=== PATIENT | male | born 1990 | race African-American/Black ===

== ENCOUNTER 2019-12-31 07:36 | Emergency (ER) | payer OTHER, SELFPAY ==
[2019-12-31 07:48] VITALS: BP 129/84; PULSE 74; RESP 17; TEMP 36.5; O2SAT 100
--- NOTE | 2019-12-31 07:53 | ED.GENADULT ---
HPI - General Adult General Chief complaint: Unspecified Stated complaint: STD check Time Seen by Provider: 12/31/19 07:42 Source: patient Mode of arrival: ambulatory Limitations: no limitations History of Present Illness HPI narrative: This patient is a 29 year old male who presents for STD check. He states he was told by his girlfriend yesterday that she had Chlamydia so he came to get checked today. He denies penile discharge, dysuria, abdominal pain, scrotal pain, or fever. Related Data Home Medications Medication Instructions Recorded Confirmed No Home Medications 12/31/19 12/31/19 Allergies Allergy/AdvReac Type Severity Reaction Status Date / Time No Known Allergies Allergy Verified 12/31/19 07:37 Review of Systems Review of Systems: All systems reviewed & are unremarkable except as noted in HPI and below Constitutional: Constitutional: Denies chills and Denies fever(s) Gastrointestinal: Gastrointestinal: Denies abdominal pain, Denies diarrhea, Denies nausea and Denies vomiting Genitourinary: Genitourinary: Denies hematuria, Denies oliguria, Denies genital lesions, Denies dysuria, Denies penile discharge, Denies testicular pain and Denies urinary frequency Musculoskeletal: Musculoskeletal: Denies back pain PMFSH Past Medical History Medical History (Updated 12/31/19 @ 08:50 by Katty Tai MD) No significant medical problems Surgical History Surgical History (Updated 12/31/19 @ 07:54 by Katty Tai MD) No history of previous surgery Social History Social History (Updated 12/31/19 @ 07:55 by Katty Tai MD) Smoking status: Current some day smoker Alcohol intake: current Alcohol use details: occasionally Substance use: current Substance use type: marijuana Gender identity (if verbalized by the patient): Male Exam Narrative: Exam Narrative: GENERAL: Well-appearing, well-nourished, and in no acute distress. HEAD: Normocephalic, atraumatic EYES: PERRLA and EOMI, conjunctiva clear without discharge fluctuance NECK: Supple, without lymphadenopathy or mass RESPIRATORY: No respiratory distress, Airway patent, Respirations non-labored, Clear to auscultation without rales, rhonchi or wheeze HEART: Regular rate and rhythm. No murmur heard. Normal peripheral pulses. ABDOMEN: Soft, nontender, nondistended, normal active bowel sounds. No masses. No rebound or guarding, No organomegaly. EXTREMITIES: No edema, normal strength with full range of motion. SKIN: Warm, dry, normal color without rash NEURO: Alert and oriented x3. CN 2-12 grossly intact. No focal deficits. PSYCH: Normal mood and affect. Course Reevaluation(s) Reevaluation #1: Patient has been treated as presumptive infection. I have discussed with patient. Date: 12/31/19 Time: 08:48 Vital Signs Vital signs: Vital Signs Temperature 97.7 F 12/31/19 07:48 Pulse Rate 74 12/31/19 07:48 Respiratory Rate 17 12/31/19 07:48 Blood Pressure 129/84 12/31/19 07:48 Pulse Oximetry 100 12/31/19 07:48 Temperature 97.7 F 12/31/19 07:48 Pulse Rate 94 12/31/19 09:04 Respiratory Rate 17 12/31/19 09:04 Blood Pressure 138/85 12/31/19 09:04 Pulse Oximetry 99 12/31/19 09:04 Medical Decision Making Vital Signs Vital Signs: Vital Signs Temperature 97.7 F 12/31/19 07:48 Pulse Rate 74 12/31/19 07:48 Respiratory Rate 17 12/31/19 07:48 Blood Pressure 129/84 12/31/19 07:48 Pulse Oximetry 100 12/31/19 07:48 Temperature 97.7 F 12/31/19 07:48 Pulse Rate 94 12/31/19 09:04 Respiratory Rate 17 12/31/19 09:04 Blood Pressure 138/85 12/31/19 09:04 Pulse Oximetry 99 12/31/19 09:04 Lab Data Labs: Lab Results 12/31/19 Range/Units 09:00 C.trachomatis RNA (TMA) Pending N.gonorrhoeae RNA (TMA) Pending Discharge Plan Discharge Clinical Impression: Exposure to STD Patient Disposition: Home, Self-Care Cond
[2019-12-31] MEDS: AZITHROMYCIN 250 MG TABLET 1000 MG PO (08:03)
[2019-12-31] MEDS: cefTRIAXone 250 MG VIAL IM (08:04)
[2019-12-31 09:04] VITALS: BP 138/85; PULSE 94; RESP 17; O2SAT 99
== END 2019-12-31 09:06 | disposition home or self-care (01) ==
PROVIDERS: Emergency Provider General Practice
DX: Z20.2 Contact with and (suspected) exposure to infections with a predominantly sexual mode of transmission (principal); F17.200 Nicotine dependence, unspecified, uncomplicated
CPT/HCPCS: 87491; 87591; 96372; 99283; A9270; J0696

== ENCOUNTER 2020-09-04 09:59 | Emergency (ER) | payer OTHER, SELFPAY ==
[2020-09-04 10:08] VITALS: BP 136/97; PULSE 71; RESP 21; TEMP 36.6; O2SAT 100
--- NOTE | 2020-09-04 10:50 | ED.GENADULT ---
HPI - General Adult General Chief complaint: Extremity Injury, Upper <Ney Jiang PA-C - Last Filed: 09/04/20 10:54> Stated complaint: R ARM PAIN <Ney Jiang PA-C - Last Filed: 09/04/20 10:54> Time Seen by Provider: 09/04/20 10:09 <Ney Jiang PA-C - Last Filed: 09/04/20 10:54> Source: patient <Ney Jiang PA-C - Last Filed: 09/04/20 10:54> Mode of arrival: ambulatory <Ney Jiang PA-C - Last Filed: 09/04/20 10:54> Limitations: no limitations <Ney Jiang PA-C - Last Filed: 09/04/20 10:54> History of Present Illness HPI narrative: Patient is a 29-year-old male who presents to emergency department for evaluation of right shoulder pain with some tingling into the pinky finger that began this morning 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 patient notes mild discomfort of the shoulder denies other injury or trauma patient does not take anything for his symptoms does not wish for any medication at this time patient requesting a work release noting that he was unable to go to work today <Ney Jiang PA-C - Last Filed: 09/04/20 10:54> Related Data Home medications: Home Medications Medication Instructions Recorded Confirmed No Home Medications 12/31/19 12/31/19 <Ney Jiang PA-C - Last Filed: 09/04/20 10:54> Allergies/adverse reactions: Allergies Allergy/AdvReac Type Severity Reaction Status Date / Time No Known Allergies Allergy Verified 09/04/20 10:42 <Ney Jiang PA-C - Last Filed: 09/04/20 10:54> Review of Systems Review of Systems: All systems reviewed & are unremarkable except as noted in HPI and below <Ney Jiang PA-C - Last Filed: 09/04/20 10:54> PMF Past Medical History Medical History: Medical History No significant medical problems <MICHEL Jones Last Filed: 09/04/20 10:54> Surgical History Surgical History: Surgical History No history of previous surgery <Ney Jiang PA-C - Last Filed: 09/04/20 10:54> Social History Social History: Social History Smoking status: Current some day smoker Alcohol intake: current Substance use: current Substance use type: marijuana Gender identity (if verbalized by the patient): Male <Ney Jiang PA-C - Last Filed: 09/04/20 10:54> Exam Narrative: Exam Narrative: GENERAL: Well-appearing, well-nourished, and in no acute distress. HEAD: Normocephalic, atraumatic. EYES: PERRLA and EOMI. ENT: Nares clear, no rhinorrhea or epistaxis. Mucous membranes moist. NECK: Supple. No adenopathy or masses. CHEST: Clear to auscultation. No respiratory distress. No wheezes rales or rhonchi HEART: Regular rate and rhythm. No murmur heard. Normal peripheral pulses. EXTREMITIES: Normal range of motion. No edema. Mild tenderness of the right shoulder no deformities no tenderness of the remainder of the extremity no cervical spine tenderness SKIN: Warm, dry, no rash. NEURO: No focal deficits. Alert and oriented x3. Cranial nerves II through XII grossly intact. Neurovascularly intact. Motor and sensory intact in the upper extremities. Normal speech and gait PSYCH: Normal mood and affect. <Ney Jiang PA-C - Last Filed: 09/04/20 10:54> Course Course Emergency Course: Patient in the room no distress will follow with primary care felt appropriate for outpatient reevaluation patient's symptoms seem to be musculoskeletal no other concerning history or findings <Ney Jiang PA-C - Last Filed: 09/04/20 10:54> Vital Signs Vital signs: Vital Signs Temperature 97.8 F 09/04/20 10:08 Pulse Rate 71 09/04/20 10:08 Respiratory Rate 21 H 09/04/20 10:08 Blood Pressure 136/97 H 09/04/20 10:08 Pulse
== END 2020-09-04 11:13 | disposition home or self-care (01) ==
PROVIDERS: Emergency Provider General Practice; PCP Family Medicine
DX: M25.511 Pain in right shoulder (principal); F17.200 Nicotine dependence, unspecified, uncomplicated
CPT/HCPCS: 99281

== ENCOUNTER 2021-03-30 11:15 | Emergency (ER) | payer OTHER, SELFPAY ==
--- NOTE | ~2021-03-30 | XR_ITS ---
EXAMINATION: XR finger 1st LT min 2V INDICATION: Left first finger pain TECHNIQUE: Three views of the left first finger are obtained. COMPARISON: None available FINDINGS: There is no fracture, dislocation, or subluxation. The bones, soft tissues, and joint space s are normal. IMPRESSION: 1. No acute osseous abnormality. Reviewed, dictated and finalized at location B.
--- NOTE | ~2021-03-30 | XR_ITS ---
EXAMINATION: XR finger 3rd RT min 2V INDICATION: Right third finger pain TECHNIQUE: Three views of the right third finger are obtained. COMPARISON: None available FINDINGS: There is a tiny heterotopic ossification at the palmar base of the third middle phalanx see n on the lateral view. The joint spaces are normal. Bone alignment is maintained. IMPRESSION: 1. Tiny heterotopic ossification at the palmar base of the third middle phalanx which could reflect a vulsion injury. Reviewed, dictated and finalized at location B. IMPRESSION: 1. Tiny heterotopic ossification at the palmar base of the third middle phalanx which could reflect avulsion injury.
[2021-03-30 11:26] VITALS: BP 146/59; PULSE 75; RESP 16; TEMP 36.6; O2SAT 100
[2021-03-30 13:04] VITALS: BP 134/94; PULSE 69; RESP 16; O2SAT 99
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
--- NOTE | 2021-05-17 13:09 | PC.NURSE ---
LATE ENTRY This note is being entered to document information to the patient's record. The following information was incorrectly entered on [04/03/2021], by [Billie Martinez RN]. Wound injury assessment should be for R hand middle finger and not R hand ring finger.
== END 2021-03-30 13:04 | disposition home or self-care (01) ==
PROVIDERS: Emergency Provider Emergency Medicine; PCP Family Medicine
DX: S61.052A Open bite of left thumb without damage to nail, initial encounter (principal); S63.612A Unspecified sprain of right middle finger, initial encounter; S61.252A Open bite of right middle finger without damage to nail, initial encounter; Y04.1XXA Assault by human bite, initial encounter; F17.200 Nicotine dependence, unspecified, uncomplicated
CPT/HCPCS: 29130; 73140; 99284

== ENCOUNTER 2021-04-15 08:12 | Emergency (ER) | payer OTHER, SELFPAY ==
--- NOTE | ~2021-04-15 | XR_ITS ---
EXAMINATION: XR femur LT min 2V EXAM DATE: 04/15/2021 08:42 INDICATION: No known recent injury provided at this time. Pain of the left femur. TECHNIQUE: Left femur frontal and lateral projections of the proximal aspect, frontal and lateral pro jections of the lower aspect for review. There is no prior study for comparison. FINDINGS: There are no acute left femoral fractures or dislocations identified. There is no subcutan eous gas. The soft tissue is unremarkable. Approximately 6 cm length foreign body seen best on the lateral projection probably external to patient. No femoral head avascular necrosis. Knee joint also unremarkable. IMPRESSION: 1. Unremarkable left femur exam. Reviewed, dictated and finalized at location A.
[2021-04-15 08:15] VITALS: BP 129/82; PULSE 91; RESP 16; TEMP 36.2; O2SAT 98
[2021-04-15 09:26] LABS: Basophils Absolute Auto 0.1 K/mm3 (0.0-0.1); Basophils Percent Auto 0.8 % (0.2-1.2); Eosinophils Absolute Auto 0.2 K/mm3 (0-0.3); Eosinophils Percent Auto 2.2 % (0-4.4); Hemoglobin 15.4 g/dL (14.0-18.0); Immature Granulocyte Absolute 0.03 K/mm3 (0.00-0.031); Immature Granulocyte Percent A 0.4 % (0-0.5); Lymphocytes Absolute Auto 2.29 K/mm3 (0.9-3.2); Mean Corpuscular Hemoglobin 32.6 pg (26-34); Mean Corpuscular Volume 93.2 fl (80-100); Mean Platelet Volume 10.5 fl (7.4-10.4); Monocytes Absolute Auto 0.9 K/mm3 (0.1-0.6); Monocytes Percent Auto 11.1 % (2.6-8.5); Neutrophils Percent Auto 58.5 % (45.5-73.1); Platelet Count Result 303 k/mm3 (150-375); Red Blood Count 4.72 M/mm3 (4.6-6.20); Red Cell Distribution Width 11.8 % (11.5-14.5); White Blood Count 8.5 K/mm3 (4.5-10.0)
[2021-04-15 09:32] LABS: Alanine Aminotransferase 27 U/L (4-50); Albumin Level 4.7 g/dL (3.5-5.1); Alkaline Phosphatase 54 U/L (38-126); Anion Gap 5 mmol/L (8-16); Aspartate Amino Transferase 31 U/L (17-59); Bilirubin,Total 0.4 mg/dL (0.2-1.3); Blood Urea Nitrogen 14 mg/dL (9-20); Calcium 9.6 mg/dL (8.4-10.2); Carbon Dioxide 28 mmol/L (22-30); Chloride 108 mmol/L (98-107); Creatine Kinase 199 U/L (55-170); Estimated CRCL calculation 93 ml/min; Estimated Glomerular Filt Rate > 60; Glucose 89 mg/dL (65-110); Potassium 4.5 mmol/L (3.4-5.0); Sodium 141 mmol/L (137-145)
[2021-04-15] MEDS: SODIUM CHLORIDE 0.9% IV 1,000 ML 999 ML IV CONT (09:43)
[2021-04-15] MEDS: KETOROLAC 15 MG/ML VIAL (*BKC) IV PUSH (10:24)
--- NOTE | 2021-04-15 11:08 | ED.EXTPRO ---
HPI - Extremity Problem General Chief complaint: Extremity Problem,Nontraumatic Stated complaint: left leg pain Time Seen by Provider: 04/15/21 08:26 History of Present Illness HPI Narrative: Patient presents with left lower extremity pain. Patient rates pain in his thigh that radiates down to his foot his symptoms were present for approximately 1 week and not resolved so he came to the ER for evaluation. Reports he was working on his car did kick his car but denies any other trauma denies any falls denies any focal numbness or weakness denies any edema. Denies any past medical history Related Data Home Medications Medication Instructions Recorded Confirmed No Home Medications 04/15/21 04/15/21 Allergies Allergy/AdvReac Type Severity Reaction Status Date / Time No Known Allergies Allergy Verified 04/15/21 08:18 Review of Systems Review of Systems: CONSTITUTIONAL: Denies fever, chills, or sweats. EYES: Denies visual changes, redness, or discharge. ENT: Denies rhinorrhea, congestion, sore throat, or otalgia. CARDIOVASCULAR: Denies chest pain, palpitations, or edema. RESPIRATORY: Denies cough or dyspnea. GASTROINTESTINAL: Denies abdominal pain, nausea, vomiting, or diarrhea. GENITOURINARY: Denies dysuria or hematuria. SKIN: Denies rash or itching. MUSCULOSKELETAL: Denies back pain, joint pain, or myalgia. NEUROLOGIC: Denies headache, numbness, dizziness, or weakness. PSYCHIATRIC: Denies anxiety or depression. All systems reviewed & are unremarkable except as noted in HPI and below PMFSH Past Medical History Medical History No significant medical problems Surgical History Surgical History No history of previous surgery Social History Social History Smoking status: Current some day smoker Alcohol intake: current Alcohol use details: occasionally Substance use: current Substance use type: marijuana Gender identity (if verbalized by the patient): Male Exam Narrative: GENERAL: Well-appearing, well-nourished, and in no acute distress. HEAD: Normocephalic, atraumatic. EYES: PERRLA and EOMI. ENT: Nares clear, no rhinorrhea or epistaxis. Mucous membranes moist. NECK: Supple. No masses. No JVD EXTREMITIES: Normal range of motion. No edema. Mild tenderness palpation on the lateral aspect of the left thigh SKIN: Warm, dry, no rash. NEURO: No focal deficits. Alert and oriented x3. PSYCH: Normal mood and affect. Course Reevaluation(s) Reevaluation #1: Patient resting comfortably reports improvement in symptoms results reviewed with patient. Patient comfortable with outpatient plan. Date: 04/15/21 Time: 11:10 Vital Signs Vital signs: Vital Signs Temperature 36.2 C L 04/15/21 08:15 Pulse Rate 91 04/15/21 08:15 Respiratory Rate 16 04/15/21 08:15 Blood Pressure 129/82 04/15/21 08:15 Pulse Oximetry 98 04/15/21 08:15 Temperature 36.2 C L 04/15/21 08:15 Pulse Rate 91 04/15/21 08:15 Respiratory Rate 16 04/15/21 08:15 Blood Pressure 129/82 04/15/21 08:15 Pulse Oximetry 98 04/15/21 08:15 MDM - Extremity (Nontraumatic) MDM Narrative Medical decision making narrative: H&P as above, vss, pt looks clinically well, exam reassuring, labs mild elevation in CK otherwise unremarkable, img unremarkable, additional labs/img considered, symptomatic relief available as needed, on reevaluation pt continues to looks clinically well. Suspect soft tissue injury, dns compartment syndrome, DVT, fracture, major neurovascular compromise. plan to tx/monitor as op w/ pcm f/u findings/plan discussed with pt, pt agree/comfortable with plan, return precautions given Lab Data Result diagrams: 04/15/21 09:16 04/15/21 09:16 Labs: Lab Results 04/15/21 04/15/21 Range/Units 09:16 09:16 WBC 8.5
== END 2021-04-15 11:17 | disposition home or self-care (01) ==
PROVIDERS: Emergency Provider Emergency Medicine; PCP Family Medicine
DX: M79.605 Pain in left leg (principal); F17.200 Nicotine dependence, unspecified, uncomplicated
CPT/HCPCS: 36415; 73552; 80053; 82550; 85025; 96361; 96374; 96375; 99284; J0131; J1885; J7030

== ENCOUNTER 2022-04-06 10:29 | Emergency (ER) | payer OTHER, SELFPAY ==
[2022-04-06 10:43] VITALS: BP 129/78; PULSE 67; RESP 16; TEMP 36.6; O2SAT 100
[2022-04-06 10:52] VITALS: BP 129/78; PULSE 67; RESP 16; TEMP 36.6; O2SAT 100
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
== END 2022-04-06 11:20 | disposition home or self-care (01) ==
PROVIDERS: Emergency Provider Nurse Practitioner; Referring Provider Family Medicine
DX: M79.601 Pain in right arm (principal); Y35.813A Legal intervention involving manhandling, suspect injured, initial encounter
CPT/HCPCS: 99213; A4565; G0463

== ENCOUNTER 2022-05-01 16:35 | Emergency (ER) | payer OTHER, SELFPAY ==
[2022-05-01 17:19] VITALS: BP 123/83; PULSE 53; RESP 18; TEMP 35.8; O2SAT 100
== END 2022-05-01 17:56 | disposition left against medical advice (07) ==
PROVIDERS: Emergency Provider Internal Medicine Hematology & Oncology
DX: Z53.21 Procedure and treatment not carried out due to patient leaving prior to being seen by health care provider (principal)
CPT/HCPCS: 99199

== ENCOUNTER 2022-05-02 10:44 | Emergency (ER) | payer OTHER, SELFPAY ==
[2022-05-02 11:27] VITALS: BP 121/85; PULSE 72; RESP 16; TEMP 36; O2SAT 100
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
== END 2022-05-02 12:00 | disposition home or self-care (01) ==
PROVIDERS: Emergency Provider Nurse Practitioner Family
DX: Z04.1 Encounter for examination and observation following transport accident (principal); F17.200 Nicotine dependence, unspecified, uncomplicated; F12.90 Cannabis use, unspecified, uncomplicated
CPT/HCPCS: 99212; G0463

== ENCOUNTER 2022-07-08 03:12 | Emergency (ER) | payer OTHER, SELFPAY ==
--- NOTE | ~2022-07-08 | CT_ITS ---
EXAMINATION: CT brain wo con INDICATION: Head injury COMPARISON: None TECHNIQUE: Standard unenhanced head CT. The dose-length product (DLP) was 605.33 mGy-cm. The mA was a djusted according to patient size. Iterative reconstruction technique was employed. FINDINGS: There is no intracranial hemorrhage, acute infarction, or abnormal mass lesion. The ventric les are normal. There is no abnormal mass effect or midline shift. The fortune-white matter differentiat ion is normal. The basal cisterns are patent. There is a left frontal scalp hematoma. The orbits are normal. There is mild mucosal thickening of the paranasal sinuses. IMPRESSION: 1. No acute intracranial abnormality. Reviewed, dictated and finalized at location A. T DESK ADMINISTRATOR
[2022-07-08 03:14] VITALS: BP 144/90; PULSE 78; RESP 15; TEMP 37
[2022-07-08 04:34] LABS: Basophils Absolute Auto 0.1 K/mm3 (0.0-0.1); Basophils Percent Auto 0.6 % (0.2-1.2); Eosinophils Absolute Auto 0.2 K/mm3 (0-0.3); Eosinophils Percent Auto 2.3 % (0-4.4); Hematocrit 41.4 % (42.0-52.0); Hemoglobin 14.2 g/dL (14.0-18.0); Immature Granulocyte Absolute 0.04 K/mm3 (0.00-0.031); Immature Granulocyte Percent A 0.5 % (0-0.5); Lymphocytes Absolute Auto 1.86 K/mm3 (0.9-3.2); Lymphocytes Percent Auto 21.4 % (18.3-44.2); Mean Corpuscular HGB Conc 34.3 g/dl (32-36); Mean Corpuscular Hemoglobin 31.9 pg (26-34); Mean Platelet Volume 10.3 fl (7.4-10.4); Monocytes Absolute Auto 0.9 K/mm3 (0.1-0.6); Monocytes Percent Auto 10.3 % (2.6-8.5); Neutrophils Absolute Auto 5.7 K/mm3 (1.3-6.7); Neutrophils Percent Auto 64.9 % (45.5-73.1); Platelet Count Result 270 k/mm3 (150-375); Red Blood Count 4.45 M/mm3 (4.6-6.20); Red Cell Distribution Width 11.9 % (11.5-14.5); White Blood Count 8.7 K/mm3 (4.5-10.0)
[2022-07-08 04:44] LABS: Ethanol 90 mg/dL (<10)
[2022-07-08 04:45] LABS: Alanine Aminotransferase 32 U/L (6-50); Albumin Level 4.5 g/dL (3.5-5.1); Alkaline Phosphatase 58 U/L (38-126); Anion Gap 10 mmol/L (8-16); Aspartate Amino Transferase 29 U/L (17-59); Bilirubin,Total 0.3 mg/dL (0.2-1.3); Blood Urea Nitrogen 12 mg/dL (9-20); Calcium 8.8 mg/dL (8.4-10.2); Carbon Dioxide 22 mmol/L (22-30); Chloride 107 mmol/L (98-107); Estimated CRCL calculation 92 ml/min; Estimated Glomerular Filt Rate > 60; Glucose 90 mg/dL (65-110); Potassium 3.5 mmol/L (3.4-5.0); Sodium 139 mmol/L (137-145)
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
[2022-07-08 05:32] LABS: Add Urine Microscopic? NO; Appearance Urine Clear (Clear); Bilirubin Urine Negative (Negative); Blood Urine Negative (Negative); Color Urine Yellow (Yellow); Glucose Urine UA Negative (Negative); Ketones Urine Negative (Negative); Leukocyte Esterase Ur Negative LEU/UL (Negative); Nitrate Urine Negative (Negative); Protein Urine Negative (Negative); Specific Grav Ur >= 1.030 (1.001-1.035); Urobilinogen Urine 0.2 mg/dL (<2.0); pH Urine 5.5 (5.0-9.0)
[2022-07-08 05:37] LABS: Mucus Urine Rare /lpf; RBC Urine 0-2 /hpf (0-2); WBC Urine 0-3 /hpf
[2022-07-08 05:45] LABS: Barbiturate Screen Urine Negative (Negative); Benzodiazepines Screen Urine Negative (Negative)
[2022-07-08 05:47] LABS: Cannabinoid Screen Urine Positive (Negative); Cocaine Screen Urine Negative (Negative); Methadone Screen Urine Negative (Negative); Opiate Screen Urine Negative (Negative); Phencyclidine Screen Urine Negative (Negative)
[2022-07-08 06:01] LABS: Amphetamine Screen Urine Negative (Negative)
--- NOTE | 2022-07-08 06:25 | PC.NURSE ---
Clark wagner called at this time to evaluate patient. Phone number [phone]
--- NOTE | 2022-07-08 07:07 | PC.NURSE ---
report given to Lexus POWELL
--- NOTE | 2022-07-08 07:09 | PC.NURSE ---
Assumed care of pt, was told by Adriana POWELL that pt is poss psych, is to be re evaluated after ETOH level come down. CRISIS is currently in room for pt eval. This RN was told pt may not need placement, pending CRISIS eval and ETOH results pending. Door closed at this time. Was told pt is not currently answering questions for nurse.
[2022-07-08 07:10] LABS: Ethanol 46 mg/dL (<10)
[2022-07-08 07:44] VITALS: BP 138/99; PULSE 75; RESP 18; O2SAT 100
[2022-07-08 08:12] LABS: Influenza A QL RT-PCR Negative (Negative); Influenza B QL RT-PCR Negative (Negative); RSV RNA, RT-PCR Negative (Negative); SARS-CoV-2 RNA PCR Negative
--- NOTE | 2022-07-08 08:27 | PC.NURSE ---
Spoke to pt and was given verbal acceptance to have a visitor, Nikole Bustos. House sup. also made aware, she is unable to bring anything to the room and will be asked to leave if any issues arise.
--- NOTE | 2022-07-08 09:18 | PC.NURSE ---
Phone call received from [facility] to notify no beds available at this time. Phone call received from [facility] to notify no beds available at this time.
--- NOTE | 2022-07-08 10:13 | PC.NURSE ---
Pt ambulated w/ tech in assist to use phone in hallway. Pt requesting IV be removed.
[2022-07-08 10:22] VITALS: BP 127/89; PULSE 71; RESP 18; O2SAT 99
--- NOTE | 2022-07-08 10:23 | PC.NURSE ---
Pt declined anything to eat or drink at this time.
--- NOTE | 2022-07-08 11:22 | PC.NURSE ---
Called dietary at this time and ordered lunch tray for pt. Spoke to Nikole.
[2022-07-08] MEDS: ACETAMINOPHEN 500 MG TABLET 1000 MG PO (12:07)
[2022-07-08 15:09] VITALS: BP 127/82; PULSE 62; RESP 15; TEMP 36.6; O2SAT 100
--- NOTE | 2022-07-08 17:15 | PC.NURSE ---
Pt to shower in [facility] as requested, security and sitter in assist. Pt given hygiene products - soap/shampoo, toothbrush and toothpaste, deodorant, comb, socks, and fresh scrubs. Sundance covered and discussed not wetting wound.
--- NOTE | 2022-07-08 18:35 | PC.NURSE ---
call received from [facility] requesting status update, informed [facility] declined due to no beds avail, per Yaritza on phone will cont to seek placement for pt
--- NOTE | 2022-07-08 22:11 | PC.NURSE ---
patient chart faxed to [facility] at this time. Fax number [phone]
--- NOTE | 2022-07-08 23:25 | PC.NURSE ---
Patient chart faxed to [facility] at this time.
--- NOTE | 2022-07-09 00:15 | PC.NURSE ---
Spoke with Patricia Rodas at this time. [facility] can't accept new patient admissions currently due to full census.
--- NOTE | 2022-07-09 00:17 | PC.NURSE ---
Patient packet faxed to [facility] at this time. Fax number [phone]
--- NOTE | 2022-07-09 03:00 | PC.NURSE ---
Patient was accepted to [facility] at this time. Gave nurse to nurse report. Accepting Dr Gonzalez. Facility states patient can't arrive at facility until 1300 today. Erinn novak RN notified.
--- NOTE | 2022-07-09 05:45 | PC.NURSE ---
called [facility] to request transport. Information given to Clare and the daytime personnel will call back around 8 am with availabilty.
--- NOTE | 2022-07-09 09:54 | PC.NURSE ---
breakfast and lunch ordered with food and nutrition. [employer] tech
--- NOTE | 2022-07-09 13:08 | PC.NURSE ---
[facility] arrived at 1240 to transport patient. [facility] tech
== END 2022-07-09 12:54 ==
PROVIDERS: Emergency Provider Emergency Medicine
DX: S01.01XA Laceration without foreign body of scalp, initial encounter (principal); R45.851 Suicidal ideations; F32.9 Major depressive disorder, single episode, unspecified; F17.200 Nicotine dependence, unspecified, uncomplicated; Z20.822 Contact with and (suspected) exposure to COVID-19; W22.09XA Striking against other stationary object, initial encounter
CPT/HCPCS: 12001; 36415; 70450; 80053; 80307; 81003; 84443; 85025; 87637; 99285; A9270

== ENCOUNTER 2023-02-20 09:05 | Emergency (ER) | payer OTHER, SELFPAY ==
[2023-02-20 09:12] VITALS: BP 130/98; PULSE 69; RESP 16; TEMP 36.5; O2SAT 99
--- NOTE | 2023-02-20 09:22 | ED.GENADULT ---
[facility] - General Adult General Chief complaint: Unspecified Stated complaint: Left Side Body Pain History of Present Illness HPI narrative: Pt is a 32 y/o male, without significant PMHx, presents to with left lower thoracic back pain. He woke with discomfort 3 days ago. He has no recollection of injury. He notes the pain increases with palpation to the area, certain positions improve or worsen discomfort and occasionally if he coughs or sneezes, he has increased pain. He describes discomfort as burning at baseline, sharp when the area is palpated. He applied heat to the region two days ago at night as he slept. He felt better briefly. He denies any other modifying factors. He has no associated fevers, cough, UTI or URI symptoms and no hx of renal colic. Related Data Allergies Allergy/AdvReac Type Severity Reaction Status Date / Time No Known Allergies Allergy Verified 02/20/23 09:13 Review of Systems Constitutional: Comments: no fevers or chills ENT: Comments: no URI symptoms Respiratory: Comments: no cough, SOB, pleuritic chest pain Genitourinary: Comments: no urinary symptoms Musculoskeletal: Comments: refer to [facility] Past Medical History Medical History No significant medical problems Surgical History Surgical History No history of previous surgery Social History Social History Smoking status: Current some day smoker Alcohol intake: current Alcohol use details: occasionally Substance use: current Substance use type: marijuana Gender identity (if verbalized by the patient): Male Exam Narrative: Pt is pleasant, lying prone on exam table at initial exam reporting this is a position of comfort for him. Const: General: cooperative, healthy appearing, comfortable, no acute distress and well developed Nutritional Appearance: average body habitus Orientation/consciousness: oriented to person, oriented to place, oriented to time and patient oriented x3 Limitations: no limitations HENMT: Head: normal to inspection Face/Nose/Sinus: Normal external nose present and Normal nares present Face and sinus: normal facial exam and sinuses nontender Mouth: Yes Normal oral and palatal mucosa present, Yes lip normal and Yes tongue normal Throat: posterior oropharynx normal Eyes: General: appearance normal, both eyes and all related structures Visual Ayala: normal visual ayala by confrontation Alignment and Position: alignment normal and position normal Eyelids: eyelids normal Conjunctivae: conjunctivae normal Cornea: corneas normal Pupils: Equal, round and reactive pupils present and Pupils normal by confrontation EOM: EOMs intact bilaterally Neck: Neck: normal visual inspection Lymphatic: no lymphadenopathy noted Chest: Chest palpation & inspection: normal inspection of the chest and normal palpation of entire chest wall Resp: Effort & Inspection: normal respiratory effort Auscultation: clear to auscultation bilaterally Percussion: percussion normal Cardio: Palpation: normal PMI Rate: regular rate Rhythm: regular rhythm Heart sounds: S1 normal heart sound present and S2 normal heart sound present Peripheral pulses: Peripheral pulses 2+ throughout GI: Inspection: normal to inspection GI Palp: Yes Other GI palpation findings present (no TTP, no CVA TTP) Back/Spine/Pelvis: Back: no CVA tenderness Other: no T or L spine point tenderness, no step offs Normal curvature There is mild TTP over the lower thoracic and upper lumbar paraspinal muscles on the left. No palpable spasm No crepitus or subq emphysema Skin: General skin exam: normal color and no rashes or lesions noted Course Course Emergency Course: suspect musculoskeletal chest wall pain. Will treat with RICE, NSAIDs an
== END 2023-02-20 09:41 | disposition home or self-care (01) ==
PROVIDERS: Emergency Provider Nurse Practitioner Family
DX: S29.012A Strain of muscle and tendon of back wall of thorax, initial encounter (principal); X58.XXXA Exposure to other specified factors, initial encounter; F17.200 Nicotine dependence, unspecified, uncomplicated
CPT/HCPCS: 99213; G0463

== ENCOUNTER 2023-07-29 12:02 | Emergency (ER) | payer OTHER, SELFPAY ==
[2023-07-29 12:16] VITALS: BP 129/76; PULSE 65; RESP 16; TEMP 36.7; O2SAT 99
== END 2023-07-29 13:00 | disposition left against medical advice (07) ==
LOC: EXPCOLL 12:04
PROVIDERS: Emergency Provider Nurse Practitioner Family
DX: Z53.21 Procedure and treatment not carried out due to patient leaving prior to being seen by health care provider (principal)
CPT/HCPCS: 99199

== ENCOUNTER 2023-11-23 02:43 | Emergency (ER) | payer OTHER, SELFPAY ==
--- NOTE | ~2023-11-23 | XR_ITS ---
EXAMINATION: XR tibia fibula LT 2V, XR ankle LT 2V DATE: 11/23/2023 03:42 INDICATION: Left ankle pain post injury TECHNIQUE: 1. Anteroposterior and lateral views of the left tibia and fibula were obtained on overlapping proxim al and distal images. 2. Anteroposterior and lateral views of the left ankle were obtained. COMPARISON: None. FINDINGS: Bone alignment is normal. No fracture. Joint spaces are normal. No left knee or ankle joint effusion. There is an eccentric 3.8 x 2.2 x 1.5 cm nonaggressive appearing expansile lytic lesion at the later al side of the metaphyseal region of the distal left tibia which demonstrates a narrow zone of transi tion with well-defined thin sclerotic margins and with remodeling outwardly bowed cortex without evid ent endosteal scalloping or periosteal reaction. Soft tissue swelling about the lateral malleolus. IMPRESSION: 1. Soft tissue swelling about the lateral malleolus without acute osseous abnormality. 2. Likely benign nonaggressive appearing 2.8 cm lytic lesion at the distal left tibia with differenti al including nonossifying fibroma, fibrous dysplasia, aneurysmal bone cyst and chondroblastoma. Reviewed, dictated and finalized at location A. IMPRESSION: 1. Soft tissue swelling about the lateral malleolus without acute osseous abnor mality. 2. Likely benign nonaggressive appearing 2.8 cm lytic lesion at the distal left tibia with differential including nonossifying fibroma, fibrous dysplasia, ane urysmal bone cyst and chondroblastoma.
[2023-11-23 02:50] VITALS: BP 146/81; PULSE 87; RESP 20; TEMP 36.8; O2SAT 100
[2023-11-23] MEDS: HYDROmorphone HCL INJ (*CRX) 1 MG/ML SYR IM (03:04)
[2023-11-23 03:35] VITALS: BP 136/93; PULSE 88; RESP 16; O2SAT 99
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
[2023-11-23 04:03] VITALS: BP 126/95; PULSE 97; RESP 14; O2SAT 100
== END 2023-11-23 04:25 | disposition home or self-care (01) ==
PROVIDERS: Emergency Provider Emergency Medicine
DX: S93.402A Sprain of unspecified ligament of left ankle, initial encounter (principal); S96.912A Strain of unspecified muscle and tendon at ankle and foot level, left foot, initial encounter; F17.200 Nicotine dependence, unspecified, uncomplicated; V43.72XA Person on outside of car injured in collision with other type car in traffic accident, initial encounter
CPT/HCPCS: 73590; 73600; 96372; 99284; J1170